=== PATIENT | female | born 1935 | race American Indian/Alaskan Native ===

== ENCOUNTER 2019-04-09 22:59 | Emergency (ER) | payer MEDICARE, OTHER ==
[~2019-04-09] VITALS: Ht 157.5 cm; Wt 50.0 kg
[~2019-04-09 22:59] MED LIST: AMLO2.5T2 PO; ASPI-1053 PO; DONE10TA7 PO; ERGO500014 PO; LISI40TA4 PO; POTA10TA15 PO; QUET-1 PO
[2019-04-10] MEDS ORDERED: acetaminophen 325mg tablet PO ONE (00:15)
[2019-04-10 00:43] VITALS: BP 129/68
== END 2019-04-10 00:45 | disposition home or self-care (01) ==
LOC: ER 23:00
DX: S00.03XA Contusion of scalp, initial encounter (principal); F03.90 Unspecified dementia, unspecified severity, without behavioral disturbance, psychotic disturbance, mood disturbance, and anxiety; M54.2 Cervicalgia; Z98.890 Other specified postprocedural states; Z79.82 Long term (current) use of aspirin; Z79.899 Other long term (current) drug therapy; W18.39XA Other fall on same level, initial encounter; Y93.89 Activity, other specified; Y92.091 Bathroom in other non-institutional residence as the place of occurrence of the external cause; Y99.8 Other external cause status
CPT/HCPCS: 70450; 72125; 99284